=== PATIENT | male | born 1955 | race Caucasian/White ===

== ENCOUNTER → 2017-07-21 | Outpatient (CLI) | payer OTHER ==
[~2017-07-21] MED LIST: ALLOPURINOL300 MG PO; AMITRYPTYLINE PO; ASPIRIN PO; ATIVAN PO; AUGMENTIN PO; BACTRIM DS TABL1 TA1 PO; CELEXA20 MG PO; COLCHICINE PO; COLCRYS0.6 MG PO; FLEXERIL10 M1; FLEXERIL10 MG PO; FLOMAX0.4 M1 PO; HYDROCODON-ACE1 EAC5 PO; IBUPROFEN PO; LISINOPRIL PO; LORTAB 5/500 TA1 TA1 PO; LORTAB PO; LOVASTATIN20 M1 PO; METFORMIN PO; NEURONTIN PO; NIASPAN PO; NORCO 10-325 TA1 TAB PO; PERCOCET PO; SYNTHROID PO; TRIGLIDE160 M1 PO; ZANTAC PO
--- NOTE | ~2017-07-21 | US11 ---
[facility] A Service of [facility] & [facility] RADIOLOGY TEXT RESULTS PATIENT: ANDREZ TORRES SR LOCATION: [facility] : 55 UNIT #: [id number] AGE: [address]: Samuel Hinkle MD SEX: M ORDER DR: [id number] [address] [id number] O MR#: [id number] Acc #: [id number] NAME: ANDREZ TORRES. : 1955 SEX: M STUDY DATE/TIME: 07/21/2017 11:02 UNIT: [facility] ROOM: STUDY DESCRIPTION: US Aorta Duplex Complete Attending Physician: Samuel Hinkle M.D. Referring Physician: Samuel Hinkle M.D. Ordering Physician: Samuel Hinkle M.D. Primary Care Physician: Samuel Hinkle M.D. MEDICAL IMAGING REPORT This report is preliminary unless electronic signature is present. EXAM Ultrasound of the abdominal aorta 07/21/2017 INDICATIONS Abdominal aortic aneurysm for 2 years. Diabetes for 7 years, hypertension controlled with medication. Nonsmoker. TECHNIQUE Ramos-scale color Doppler and spectral analysis of the abdominal aorta was performed. Correlation is made with CT 10/24/2016 FINDINGS The proximal aorta measures up to 1.8 cm, the mid aorta up to 2.9 cm and the distal aorta is not well visualized or assessed but measures up to about 2.3 cm. Iliac arteries not well visualized or assessed. On one long axis view the mid to distal aorta measures up to 3 cm. Appropriate color flow and waveforms in the aorta. IMPRESSION 1. There is mild aneurysmal dilatation of the mid to distal aorta measuring up to about 3 cm. This is similar to the prior CT of 10/24/2016. Dictated by... Kailash Rowe M.D. THIS IS AN ELECTRONICALLY VERIFIED REPORT Kailash Rowe M.D. at 07/22/2017 7:17 AM CHINO/carlo TD: 07/22/2017 01:01 JOB #: [id number] [facility] A Service of [facility] & [facility] RADIOLOGY TEXT RESULTS PATIENT: ANDREZ TORRES SR LOCATION: [facility] #: [id number] : 55 UNIT #: [id number] AGE: [address]: Samuel Hinkle MD SEX: M ORDER DR: MEDICAL IMAGING REPORT Page 1 of 1
== END | disposition home or self-care (01) ==
LOC: SGUS 08:48
DX: I71.4 Abdominal aortic aneurysm, without rupture (principal)
CPT/HCPCS: 93978